=== PATIENT | female | born 1935 | race Caucasian/White ===

== ENCOUNTER 2024-01-31 16:34 | Inpatient (IN) | payer OTHER ==
[2024-01-31] MEDS ORDERED: traMADol HCl 50 MG TAB PO PRN (19:01)
[2024-01-31] MEDS ORDERED: Bisacodyl 5 MG TAB PO PRN (19:02)
[2024-01-31] MEDS ORDERED: Dextrose 50% Abboject 50 ML SYRINGE SLOW IVP PRN (19:02)
[2024-01-31] MEDS ORDERED: Glucagon 1 MG/ML KIT IM PRN (19:02)
[2024-01-31] MEDS: Senokot S 8.6-50 MG TAB PO SCH (20:25)
[2024-01-31] MEDS: Acetaminophen 325 MG TAB PO SCH (20:25)
[2024-01-31] MEDS: Gabapentin 400 MG CAP PO SCH (20:27)
[2024-01-31] MEDS: Atorvastatin Calcium 20 MG TAB PO SCH (20:27)
[2024-01-31] MEDS: HumaLOG 300 UNITS/3 ML VIAL SC PRN (20:32)
[2024-02-01] MEDS: HumaLOG 300 UNITS/3 ML VIAL SC PRN (05:29)
[2024-02-01 06:11] LABS: #Basophils 0.1 thou/uL (0.0-0.2); #Eosinphils 0.1 thou/uL (0.0-0.7); #Lymphocytes 1.9 thou/uL (1.20-3.40); #Monocytes 0.4 thou/uL (0.11-0.59); #Neutrophils 2.9 thou/uL (1.40-6.50); %Basophils 1.1 % (0.0-1.0); %Eosinophils 1.5 % (0.0-10.0); %Lymphocytes 35.6 % (21.0-51.0); %Monocytes 8.1 % (0.0-10.0); %Neutrophils 53.8 % (42.0-75.0); Hemoglobin 14.4 g/dL (12.0-16.0); Mean Corpuscular HGB CONC 31.3 g/dL (32.0-36.0); Mean Corpuscular Hemoglobin 30.2 pg (27.0-31.0); Mean Corpuscular Volume 96.5 fl (78.0-98.0); Mean Platelet Volume 12.1 fL (7.4-10.4); Platelet Count 66 10x3/uL (130-400); RBC Distribution Width 13.2 % (11.5-14.5); Red Blood Cell (RBC) Count 4.77 mill/uL (4.20-5.40); White Blood Cell (WBC) Count 5.4 10x3/uL (4.8-10.8)
[2024-02-01 06:14] LABS: ALT (SGPT) 41 U/L (8-55); AST (SGOT) 49 U/L (5-34); Albumin 3.5 g/dL (3.4-4.8); Alkaline Phosphatase 154 U/L (40-110); Anion Gap 15 mmol/L (10-20); BUN (Urea Nitrogen) 17 mg/dL (9.8-20.1); Bilirubin, Total 1.2 mg/dL (0.2-1.2); Calc. Creatinine Clearance 39 mL/min (70-130); Calcium 9.5 mg/dL (7.8-10.44); Carbon Dioxide 24 mmol/L (23-31); Chloride 108 mmol/L (98-107); Estimated GFR 64; Globulin 2.9 g/dL (2.4-3.5); Glucose 173 mg/dL (83-110); Potassium 5.4 mmol/L (3.5-5.1); Protein, Total 6.4 g/dL (5.8-8.1); Sodium 142 mmol/L (136-145)
[2024-02-01] MEDS: metFORMIN 500 MG TAB PO SCH (07:52)
[2024-02-01] MEDS: Amlodipine 10 MG TAB PO SCH (09:10)
[2024-02-01] MEDS: Polyethylene Glycol 3350 17 GM Packet PO SCH (09:14)
[2024-02-01] MEDS: HYDROcodone/Acetaminophen 5/325 mg Tablet PO PRN (09:22)
[2024-02-01] MEDS: Lantus 1000 UNITS/10 ML VIAL SC SCH (09:26)
[2024-02-01] MEDS: Pantoprazole DR 40 MG TAB PO SCH (09:28)
[2024-02-01] MEDS: Aspirin 81 mg Enteric Coated Tablet PO SCH (09:29)
[2024-02-01] MEDS: Empagliflozin 10 MG TAB PO SCH (09:29)
[2024-02-01] MEDS: Enoxaparin 40 MG (0.4 mL) SYRINGE SC SCH (10:19)
[2024-02-01] MEDS: Ondansetron ODT 4 MG TAB SL PRN (15:21)
[2024-02-01] MEDS: Meclizine HCl 25 MG TAB PO PRN (15:27)
[2024-02-01 16:42] LABS: Anion Gap 20 mmol/L (10-20); BUN (Urea Nitrogen) 18 mg/dL (9.8-20.1); Calc. Creatinine Clearance 34 mL/min (70-130); Calcium 9.4 mg/dL (7.8-10.44); Carbon Dioxide 20 mmol/L (23-31); Chloride 106 mmol/L (98-107); Estimated GFR 54; Glucose 140 mg/dL (83-110); Potassium 5.2 mmol/L (3.5-5.1); Sodium 141 mmol/L (136-145)
[2024-02-02] MEDS: Artificial Tear Sol 15 ML BOT EA EYE PRN (05:32)
[2024-02-02] MEDS: Acetaminophen 325 MG TAB PO SCH (11:29)
[2024-02-02] MEDS: Melatonin 3 MG TAB PO PRN (23:04)
[2024-02-03 06:06] LABS: Anion Gap 17 mmol/L (10-20); BUN (Urea Nitrogen) 29 mg/dL (9.8-20.1); Calc. Creatinine Clearance 34 mL/min (70-130); Calcium 8.9 mg/dL (7.8-10.44); Carbon Dioxide 21 mmol/L (23-31); Chloride 106 mmol/L (98-107); Estimated GFR 54; Glucose 91 mg/dL (83-110); Potassium 4.6 mmol/L (3.5-5.1); Sodium 139 mmol/L (136-145)
[2024-02-04 05:27] LABS: #Basophils 0.1 thou/uL (0.0-0.2); #Eosinphils 0.1 thou/uL (0.0-0.7); #Lymphocytes 1.9 thou/uL (1.20-3.40); #Monocytes 0.5 thou/uL (0.11-0.59); #Neutrophils 2.6 thou/uL (1.40-6.50); %Basophils 1.1 % (0.0-1.0); %Eosinophils 1.6 % (0.0-10.0); %Lymphocytes 37.4 % (21.0-51.0); %Monocytes 9.3 % (0.0-10.0); %Neutrophils 50.6 % (42.0-75.0); Hematocrit 41.4 % (36.0-47.0); Hemoglobin 13.2 g/dL (12.0-16.0); Mean Corpuscular HGB CONC 31.9 g/dL (32.0-36.0); Mean Corpuscular Hemoglobin 30.6 pg (27.0-31.0); Mean Corpuscular Volume 96.1 fl (78.0-98.0); Mean Platelet Volume 11.6 fL (7.4-10.4); Platelet Count 61 10x3/uL (130-400); RBC Distribution Width 12.9 % (11.5-14.5); Red Blood Cell (RBC) Count 4.31 mill/uL (4.20-5.40); White Blood Cell (WBC) Count 5.1 10x3/uL (4.8-10.8)
[2024-02-04 05:42] LABS: Anion Gap 16 mmol/L (10-20); BUN (Urea Nitrogen) 29 mg/dL (9.8-20.1); Calc. Creatinine Clearance 33 mL/min (70-130); Calcium 9.1 mg/dL (7.8-10.44); Carbon Dioxide 23 mmol/L (23-31); Chloride 106 mmol/L (98-107); Estimated GFR 53; Glucose 101 mg/dL (83-110); Sodium 140 mmol/L (136-145)
[2024-02-04] MEDS: HYDROcodone/Acetaminophen 5/325 mg Tablet PO PRN (20:03)
[2024-02-05] MEDS: Melatonin 3 MG TAB PO PRN (20:29)
[2024-02-06 06:04] LABS: Anion Gap 17 mmol/L (10-20); BUN (Urea Nitrogen) 25 mg/dL (9.8-20.1); Calc. Creatinine Clearance 38 mL/min (70-130); Carbon Dioxide 20 mmol/L (23-31); Chloride 106 mmol/L (98-107); Estimated GFR 59; Glucose 106 mg/dL (83-110); Potassium 5.1 mmol/L (3.5-5.1); Sodium 138 mmol/L (136-145)
[2024-02-07 08:00] VITALS: BMI 29.7
[2024-02-07] MEDS: Lidocaine 4% Patch TD SCH (08:16)
[2024-02-07 10:34] VITALS: BMI 22.0
[2024-02-07] MEDS ORDERED: Acetaminophen 325 MG TAB PO PRN (11:25)
[2024-02-07] MEDS: Ibuprofen 200 MG TAB PO SCH (11:59)
[2024-02-07] MEDS: traMADol HCl 50 MG TAB PO SCH (12:01)
[2024-02-07] MEDS: Transdermal Patch Removal TOP SCH (20:27)
[2024-02-08 06:12] LABS: Hematocrit 38.6 % (36.0-47.0); Hemoglobin 12.2 g/dL (12.0-16.0); Platelet Count 67 10x3/uL (130-400)
[2024-02-10 06:02] LABS: Manual Diff?? NO
[2024-02-10 06:04] LABS: Anion Gap 14 mmol/L (10-20); BUN (Urea Nitrogen) 27 mg/dL (9.8-20.1); Calc. Creatinine Clearance 35 mL/min (70-130); Calcium 8.7 mg/dL (7.8-10.44); Carbon Dioxide 24 mmol/L (23-31); Chloride 105 mmol/L (98-107); Estimated GFR 44; Glucose 105 mg/dL (83-110); Potassium 5.7 mmol/L (3.5-5.1); Sodium 137 mmol/L (136-145)
[2024-02-10 08:03] LABS: #Basophils 0.1 thou/uL (0.0-0.2); #Eosinphils 0.1 thou/uL (0.0-0.7); #Lymphocytes 1.9 thou/uL (1.20-3.40); #Monocytes 0.5 thou/uL (0.11-0.59); #Neutrophils 2.2 thou/uL (1.40-6.50); %Basophils 1.7 % (0.0-1.0); %Lymphocytes 39.6 % (21.0-51.0); %Monocytes 10.9 % (0.0-10.0); %Neutrophils 45.8 % (42.0-75.0); Hematocrit 38.3 % (36.0-47.0); Mean Corpuscular HGB CONC 31.4 g/dL (32.0-36.0); Mean Corpuscular Hemoglobin 30.2 pg (27.0-31.0); Mean Corpuscular Volume 96.2 fl (78.0-98.0); Platelet Count 75 10x3/uL (130-400); RBC Distribution Width 13.1 % (11.5-14.5); Red Blood Cell (RBC) Count 3.98 mill/uL (4.20-5.40); White Blood Cell (WBC) Count 4.7 10x3/uL (4.8-10.8)
[2024-02-10] MEDS: Sodium Polystyrene Sulfonate 15 GM (60 mL) BOT PO SCH (09:54)
[2024-02-10 20:29] VITALS: TEMP 97.9
[2024-02-11 07:00] LABS: Anion Gap 16 mmol/L (10-20); BUN (Urea Nitrogen) 26 mg/dL (9.8-20.1); Calc. Creatinine Clearance 38 mL/min (70-130); Carbon Dioxide 26 mmol/L (23-31); Chloride 107 mmol/L (98-107); Estimated GFR 49; Glucose 120 mg/dL (83-110); Sodium 144 mmol/L (136-145)
[2024-02-11 08:11] VITALS: BP 127/58
== END 2024-02-11 12:00 | disposition home health service (06) | DRG 948 ==
LOC: NAV ACUTE 18:48
PROVIDERS: ADMIT Family Medicine; ATTEND Family Medicine
DX: R53.81 Other malaise (principal); I13.0 Hypertensive heart and chronic kidney disease with heart failure and stage 1 through stage 4 chronic kidney disease, or unspecified chronic kidney disease; I50.32 Chronic diastolic (congestive) heart failure; M51.36 Other intervertebral disc degeneration, lumbar region; M48.061 Spinal stenosis, lumbar region without neurogenic claudication; K59.00 Constipation, unspecified; I25.10 Atherosclerotic heart disease of native coronary artery without angina pectoris; N18.31 Chronic kidney disease, stage 3a; E11.22 Type 2 diabetes mellitus with diabetic chronic kidney disease; Z90.49 Acquired absence of other specified parts of digestive tract; Z90.710 Acquired absence of both cervix and uterus; Z87.891 Personal history of nicotine dependence; Z88.8 Allergy status to other drugs, medicaments and biological substances; Z79.899 Other long term (current) drug therapy; Z79.82 Long term (current) use of aspirin; E87.5 Hyperkalemia; D69.6 Thrombocytopenia, unspecified; Z79.4 Long term (current) use of insulin
CPT/HCPCS: 36415; 36416; 80048; 80053; 82565; 85014; 85018; 85025; 85049; J1815; Q0162

== ENCOUNTER 2025-07-10 09:37 | Inpatient (IN) | payer OTHER ==
[2025-07-10] MEDS ORDERED: Senokot S 8.6-50 MG TAB PO PRN (17:29)
[2025-07-10] MEDS ORDERED: Calcium Carbonate 500 MG ChewTAB PO PRN (17:29)
[2025-07-10] MEDS ORDERED: HYDROcodone/Acetaminophen 5/325 mg Tablet PO PRN (17:30)
[2025-07-10] MEDS ORDERED: Dextrose 50% Abboject 50 ML SYRINGE SLOW IVP PRN (19:41)
[2025-07-10] MEDS ORDERED: Acetaminophen 325 MG TAB PO PRN (19:41)
[2025-07-10] MEDS ORDERED: Glucagon 1 MG/ML KIT IM PRN (19:41)
[2025-07-10] MEDS: OLANZapine 5 MG TAB PO SCH (20:53)
[2025-07-10] MEDS: Guaifenesin DM 100-10/5 ML UDCUP PO PRN (20:53)
[2025-07-10] MEDS: Gabapentin 400 MG CAP PO SCH (20:53)
[2025-07-10] MEDS ORDERED: Famotidine 20 MG TAB PO SCH (21:00)
[2025-07-11 05:54] LABS: #Basophils 0.1 thou/uL (0.0-0.2); #Eosinophils 0.1 thou/uL (0.0-0.7); #Lymphocytes 1.5 thou/uL (1.20-3.40); #Monocytes 0.9 thou/uL (0.11-0.59); #Neutrophils 5.0 thou/uL (1.40-6.50); %Basophils 1.1 % (0.0-1.0); %Eosinophils 0.7 % (0.0-10.0); %Lymphocytes 19.6 % (21.0-51.0); %Monocytes 12.4 % (0.0-10.0); %Neutrophils 66.2 % (42.0-75.0); Hematocrit 28.9 % (36.0-47.0); Hemoglobin 10.5 g/dL (12.0-16.0); Mean Corpuscular Hemoglobin 32.7 pg (27.0-31.0); Mean Corpuscular Volume 89.7 fl (78.0-98.0); Platelet Count 124 10x3/uL (130-400); Red Blood Cell (RBC) Count 3.22 mill/uL (4.20-5.40); White Blood Cell (WBC) Count 7.6 10x3/uL (4.8-10.8)
[2025-07-11 06:05] LABS: ALT (SGPT) 44 U/L (Less than 34); AST (SGOT) 62 U/L (11-34); Albumin 1.7 g/dL (3.1-4.5); Alkaline Phosphatase 377 U/L (40-110); Anion Gap 12 mmol/L (10-20); BUN (Urea Nitrogen) 29 mg/dL (9.8-20.1); Bilirubin, Total 2.6 mg/dL (0.3-1.2); Calc. Creatinine Clearance 41 mL/min (70-130); Calcium 7.6 mg/dL (7.8-10.44); Carbon Dioxide 20 mmol/L (23-31); Chloride 110 mmol/L (98-107); Globulin 3.4 g/dL (2.4-3.5); Glucose 149 mg/dL (83-110); Potassium 4.6 mmol/L (3.5-5.1); Sodium 137 mmol/L (136-145)
[2025-07-11] MEDS: Acetaminophen 325 MG TAB PO PRN (06:35)
[2025-07-11] MEDS: Furosemide 20 MG (2 mL) VIAL SLOW IVP SCH (07:54)
[2025-07-11] MEDS: metFORMIN 500 MG TAB PO SCH (08:15)
[2025-07-11] MEDS: Carvedilol 6.25 MG TAB PO SCH (08:16)
[2025-07-11] MEDS: Pantoprazole 40 MG DR.TAB PO SCH (08:16)
[2025-07-11] MEDS: Losartan 50 MG TAB PO SCH (08:16)
[2025-07-12] MEDS: Furosemide 20 MG (2 mL) VIAL SLOW IVP SCH ×2 (08:04→14:45)
[2025-07-12] MEDS: Enoxaparin 40 MG (0.4 mL) SYRINGE SC SCH (08:11)
[2025-07-13 05:40] LABS: #Basophils 0.1 thou/uL (0.0-0.2); #Eosinophils 0.1 thou/uL (0.0-0.7); #Lymphocytes 1.1 thou/uL (1.20-3.40); #Monocytes 0.6 thou/uL (0.11-0.59); #Neutrophils 3.2 thou/uL (1.40-6.50); %Basophils 1.5 % (0.0-1.0); %Eosinophils 1.0 % (0.0-10.0); %Lymphocytes 21.9 % (21.0-51.0); %Monocytes 11.6 % (0.0-10.0); %Neutrophils 63.9 % (42.0-75.0); Hematocrit 28.1 % (36.0-47.0); Hemoglobin 10.0 g/dL (12.0-16.0); Mean Corpuscular Hemoglobin 32.4 pg (27.0-31.0); Mean Corpuscular Volume 90.7 fl (78.0-98.0); Platelet Count 100 10x3/uL (130-400); Red Blood Cell (RBC) Count 3.10 mill/uL (4.20-5.40); White Blood Cell (WBC) Count 5.1 10x3/uL (4.8-10.8)
[2025-07-13 05:57] LABS: ALT (SGPT) 36 U/L (Less than 34); AST (SGOT) 59 U/L (11-34); Albumin 1.7 g/dL (3.1-4.5); Alkaline Phosphatase 359 U/L (40-110); Anion Gap 12 mmol/L (10-20); BUN (Urea Nitrogen) 32 mg/dL (9.8-20.1); Bilirubin, Total 1.7 mg/dL (0.3-1.2); Calc. Creatinine Clearance 39 mL/min (70-130); Calcium 7.6 mg/dL (7.8-10.44); Carbon Dioxide 19 mmol/L (23-31); Chloride 111 mmol/L (98-107); Globulin 3.3 g/dL (2.4-3.5); Glucose 129 mg/dL (83-110); Potassium 4.4 mmol/L (3.5-5.1); Sodium 138 mmol/L (136-145)
[2025-07-13] MEDS: Acetaminophen 325 MG TAB PO PRN (11:59)
[2025-07-13] MEDS: FLU (Fluad Triv) 25-26 (65UP)PF 45 MCG/0.5 ML Syringe IM ONE (13:41)
[2025-07-13] MEDS: PNEUMOC 20-VAL CONJ-DIP CRM/PF 0.5 ML SYRINGE IM ONE (13:42)
[2025-07-13] MEDS: Melatonin 3 MG TAB PO SCH (20:34)
[2025-07-14 05:51] LABS: #Basophils 0.0 thou/uL (0.0-0.2); #Eosinophils 0.0 thou/uL (0.0-0.7); #Lymphocytes 1.1 thou/uL (1.20-3.40); #Monocytes 0.5 thou/uL (0.11-0.59); #Neutrophils 2.9 thou/uL (1.40-6.50); %Basophils 1.1 % (0.0-1.0); %Eosinophils 1.1 % (0.0-10.0); %Lymphocytes 23.3 % (21.0-51.0); %Monocytes 11.6 % (0.0-10.0); %Neutrophils 63.0 % (42.0-75.0); Hematocrit 26.3 % (36.0-47.0); Hemoglobin 9.3 g/dL (12.0-16.0); Mean Corpuscular Hemoglobin 32.0 pg (27.0-31.0); Mean Corpuscular Volume 90.7 fl (78.0-98.0); Platelet Count 103 10x3/uL (130-400); Red Blood Cell (RBC) Count 2.90 mill/uL (4.20-5.40); White Blood Cell (WBC) Count 4.5 10x3/uL (4.8-10.8)
[2025-07-14 05:58] LABS: ALT (SGPT) 37 U/L (Less than 34); AST (SGOT) 60 U/L (11-34); Albumin 1.6 g/dL (3.1-4.5); Alkaline Phosphatase 359 U/L (40-110); Anion Gap 14 mmol/L (10-20); BUN (Urea Nitrogen) 35 mg/dL (9.8-20.1); Bilirubin, Total 1.4 mg/dL (0.3-1.2); Calc. Creatinine Clearance 39 mL/min (70-130); Calcium 7.6 mg/dL (7.8-10.44); Carbon Dioxide 19 mmol/L (23-31); Chloride 112 mmol/L (98-107); Globulin 3.2 g/dL (2.4-3.5); Glucose 139 mg/dL (83-110); Potassium 4.6 mmol/L (3.5-5.1); Sodium 140 mmol/L (136-145)
[2025-07-15 05:50] LABS: #Basophils 0.1 thou/uL (0.0-0.2); #Eosinophils 0.1 thou/uL (0.0-0.7); #Lymphocytes 1.2 thou/uL (1.20-3.40); #Monocytes 0.6 thou/uL (0.11-0.59); #Neutrophils 3.2 thou/uL (1.40-6.50); %Basophils 1.0 % (0.0-1.0); %Eosinophils 1.0 % (0.0-10.0); %Lymphocytes 22.7 % (21.0-51.0); %Monocytes 12.4 % (0.0-10.0); %Neutrophils 62.9 % (42.0-75.0); Hematocrit 27.2 % (36.0-47.0); Hemoglobin 9.7 g/dL (12.0-16.0); Mean Corpuscular Hemoglobin 32.3 pg (27.0-31.0); Mean Corpuscular Volume 90.4 fl (78.0-98.0); Platelet Count 95 10x3/uL (130-400); Red Blood Cell (RBC) Count 3.01 mill/uL (4.20-5.40); White Blood Cell (WBC) Count 5.1 10x3/uL (4.8-10.8)
[2025-07-15 06:01] LABS: Anion Gap 12 mmol/L (10-20); BUN (Urea Nitrogen) 33 mg/dL (9.8-20.1); Calc. Creatinine Clearance 45 mL/min (70-130); Calcium 7.5 mg/dL (7.8-10.44); Carbon Dioxide 19 mmol/L (23-31); Chloride 111 mmol/L (98-107); Glucose 141 mg/dL (83-110); Potassium 4.1 mmol/L (3.5-5.1); Sodium 138 mmol/L (136-145)
[2025-07-15] MEDS: Furosemide 20 MG (2 mL) VIAL SLOW IVP SCH (08:11)
[2025-07-16] MEDS: Losartan 25 MG TAB PO SCH (09:33)
[2025-07-17 06:01] LABS: #Basophils 0.1 thou/uL (0.0-0.2); #Eosinophils 0.1 thou/uL (0.0-0.7); #Lymphocytes 1.3 thou/uL (1.20-3.40); #Monocytes 0.6 thou/uL (0.11-0.59); #Neutrophils 2.7 thou/uL (1.40-6.50); %Basophils 2.0 % (0.0-1.0); %Eosinophils 1.4 % (0.0-10.0); %Lymphocytes 27.2 % (21.0-51.0); %Monocytes 12.3 % (0.0-10.0); %Neutrophils 57.0 % (42.0-75.0); Hematocrit 28.8 % (36.0-47.0); Hemoglobin 10.1 g/dL (12.0-16.0); Mean Corpuscular Hemoglobin 31.8 pg (27.0-31.0); Mean Corpuscular Volume 90.9 fl (78.0-98.0); Platelet Count 109 10x3/uL (130-400); Red Blood Cell (RBC) Count 3.16 mill/uL (4.20-5.40); White Blood Cell (WBC) Count 4.7 10x3/uL (4.8-10.8)
[2025-07-17 06:14] LABS: Anion Gap 12 mmol/L (10-20); BUN (Urea Nitrogen) 30 mg/dL (9.8-20.1); Calc. Creatinine Clearance 39 mL/min (70-130); Carbon Dioxide 19 mmol/L (23-31); Chloride 112 mmol/L (98-107); Potassium 4.2 mmol/L (3.5-5.1); Sodium 139 mmol/L (136-145)
[2025-07-17 06:15] LABS: ALT (SGPT) 41 U/L (Less than 34); AST (SGOT) 76 U/L (11-34); Albumin 1.9 g/dL (3.1-4.5); Alkaline Phosphatase 391 U/L (40-110); Bilirubin, Total 1.5 mg/dL (0.3-1.2); Calcium 7.9 mg/dL (7.8-10.44); Globulin 3.6 g/dL (2.4-3.5); Glucose 119 mg/dL (83-110)
[2025-07-17] MEDS: Furosemide 40 MG TAB PO SCH (09:36)
[2025-07-18] MEDS: Artificial Tear Ophth Sol 15 ML BOT EA EYE PRN (08:10)
[2025-07-18] MEDS: HYDROcodone/Acetaminophen 5/325 mg Tablet PO PRN (19:53)
[2025-07-21 09:54] LABS: ALT (SGPT) 47 U/L (Less than 34); AST (SGOT) 89 U/L (11-34); Albumin 1.9 g/dL (3.1-4.5); Alkaline Phosphatase 432 U/L (40-110); Anion Gap 15 mmol/L (10-20); BUN (Urea Nitrogen) 32 mg/dL (9.8-20.1); Bilirubin, Total 1.5 mg/dL (0.3-1.2); Calc. Creatinine Clearance 33 mL/min (70-130); Calcium 8.0 mg/dL (7.8-10.44); Carbon Dioxide 20 mmol/L (23-31); Chloride 107 mmol/L (98-107); Globulin 3.5 g/dL (2.4-3.5); Glucose 192 mg/dL (83-110); Potassium 4.3 mmol/L (3.5-5.1); Sodium 138 mmol/L (136-145)
[2025-07-21 10:10] LABS: #Basophils 0.0 thou/uL (0.0-0.2); #Eosinophils 0.0 thou/uL (0.0-0.7); #Lymphocytes 1.2 thou/uL (1.20-3.40); #Monocytes 0.5 thou/uL (0.11-0.59); #Neutrophils 2.0 thou/uL (1.40-6.50); %Basophils 1.3 % (0.0-1.0); %Eosinophils 1.1 % (0.0-10.0); %Lymphocytes 32.0 % (21.0-51.0); %Monocytes 13.5 % (0.0-10.0); %Neutrophils 52.1 % (42.0-75.0); Hematocrit 28.4 % (36.0-47.0); Hemoglobin 10.1 g/dL (12.0-16.0); Mean Corpuscular Hemoglobin 32.1 pg (27.0-31.0); Mean Corpuscular Volume 90.4 fl (78.0-98.0); Platelet Count 79 10x3/uL (130-400); Red Blood Cell (RBC) Count 3.14 mill/uL (4.20-5.40); White Blood Cell (WBC) Count 3.7 10x3/uL (4.8-10.8)
[2025-07-23 06:23] LABS: #Basophils 0.1 thou/uL (0.0-0.2); #Eosinophils 0.1 thou/uL (0.0-0.7); #Lymphocytes 1.5 thou/uL (1.20-3.40); #Monocytes 0.5 thou/uL (0.11-0.59); #Neutrophils 1.4 thou/uL (1.40-6.50); %Basophils 2.4 % (0.0-1.0); %Eosinophils 1.7 % (0.0-10.0); %Lymphocytes 42.9 % (21.0-51.0); %Monocytes 14.5 % (0.0-10.0); %Neutrophils 38.6 % (42.0-75.0); Hematocrit 27.8 % (36.0-47.0); Hemoglobin 9.6 g/dL (12.0-16.0); Mean Corpuscular Hemoglobin 31.0 pg (27.0-31.0); Mean Corpuscular Volume 89.6 fl (78.0-98.0); Platelet Count 77 10x3/uL (130-400); Red Blood Cell (RBC) Count 3.11 mill/uL (4.20-5.40); White Blood Cell (WBC) Count 3.5 10x3/uL (4.8-10.8)
[2025-07-30 06:07] LABS: ALT (SGPT) 37 U/L (Less than 34); AST (SGOT) 78 U/L (11-34); Albumin 2.1 g/dL (3.1-4.5); Alkaline Phosphatase 312 U/L (40-110); Anion Gap 14 mmol/L (10-20); BUN (Urea Nitrogen) 31 mg/dL (9.8-20.1); Bilirubin, Total 1.3 mg/dL (0.3-1.2); Calc. Creatinine Clearance 31 mL/min (70-130); Calcium 8.1 mg/dL (7.8-10.44); Carbon Dioxide 28 mmol/L (23-31); Chloride 104 mmol/L (98-107); Globulin 3.4 g/dL (2.4-3.5); Glucose 107 mg/dL (83-110); Potassium 4.3 mmol/L (3.5-5.1); Sodium 142 mmol/L (136-145)
[2025-07-30 06:09] LABS: #Basophils 0.0 thou/uL (0.0-0.2); #Eosinophils 0.1 thou/uL (0.0-0.7); #Lymphocytes 1.7 thou/uL (1.20-3.40); #Monocytes 0.3 thou/uL (0.11-0.59); #Neutrophils 1.6 thou/uL (1.40-6.50); %Basophils 1.2 % (0.0-1.0); %Eosinophils 1.6 % (0.0-10.0); %Lymphocytes 46.4 % (21.0-51.0); %Monocytes 9.2 % (0.0-10.0); %Neutrophils 41.7 % (42.0-75.0); Hematocrit 31.6 % (36.0-47.0); Hemoglobin 10.3 g/dL (12.0-16.0); Mean Corpuscular Hemoglobin 32.1 pg (27.0-31.0); Mean Corpuscular Volume 98.1 fl (78.0-98.0); Platelet Count 82 10x3/uL (130-400); Red Blood Cell (RBC) Count 3.22 mill/uL (4.20-5.40); White Blood Cell (WBC) Count 3.7 10x3/uL (4.8-10.8)
[2025-07-30 08:26] VITALS: BMI 26.2
[2025-08-01 04:12] VITALS: BMI 26.6
[2025-08-02 07:53] VITALS: BP 121/67; TEMP 97.9
== END 2025-08-02 09:53 | disposition home health service (06) | DRG 945 ==
LOC: NAV ACUTE 14:20
PROVIDERS: ADMIT Family Medicine; ATTEND Family Medicine
PROC: F07Z5ZZ Bed Mobility Treatment (ICD-10-PCS; principal; 2025-07-11)
PROC: F08Z0ZZ Bathing/Showering Techniques Treatment (ICD-10-PCS; 2025-07-11)
DX: R53.81 Other malaise (principal); I82.220 Acute embolism and thrombosis of inferior vena cava; J18.9 Pneumonia, unspecified organism; C22.0 Liver cell carcinoma; D62 Acute posthemorrhagic anemia; I13.0 Hypertensive heart and chronic kidney disease with heart failure and stage 1 through stage 4 chronic kidney disease, or unspecified chronic kidney disease; Z66 Do not resuscitate; I25.10 Atherosclerotic heart disease of native coronary artery without angina pectoris; Z88.5 Allergy status to narcotic agent; Z98.890 Other specified postprocedural states; Z88.8 Allergy status to other drugs, medicaments and biological substances; D69.6 Thrombocytopenia, unspecified; I50.9 Heart failure, unspecified; Y95 Nosocomial condition; R74.01 Elevation of levels of liver transaminase levels; N18.31 Chronic kidney disease, stage 3a; R11.2 Nausea with vomiting, unspecified; E11.43 Type 2 diabetes mellitus with diabetic autonomic (poly)neuropathy; K31.84 Gastroparesis; Z79.899 Other long term (current) drug therapy
CPT/HCPCS: 36415; 36416; 71045; 80048; 80053; 84443; 85025; 94640; J0692; J1650; J1815; J1940; Q0162